=== PATIENT | male | born 1980 | race Caucasian/White ===

== ENCOUNTER 2019-05-12 17:43 | Inpatient (IN) | payer MEDICAID ==
[~2019-05-12] VITALS: Ht 172.7 cm; Wt 110.0 kg
[~2019-05-12 17:43] MED LIST: DOCU-144 PO; HYDR-4011 PO
[2019-05-12 18:02] VITALS: Ht 172.7 cm; Wt 110.0 kg
[2019-05-12] MEDS ORDERED: LIDOCAINE/MYLANTA 40 ML BTL PO ONE (19:00)
[2019-05-12] MEDS ORDERED: RANITIDINE 150 MG TAB PO ONE (19:00)
[2019-05-12] MEDS ORDERED: LACTATED RINGER'S 1,000 ML IV ONE (20:30)
[2019-05-12] MEDS ORDERED: PIPER-TAZO 3.375 GM IV (PMX) 100 ML IVPB ONE (20:30)
[2019-05-12] MEDS ORDERED: BISACODYL (EC) 5 MG TAB PO PRN (21:30)
[2019-05-12] MEDS ORDERED: ACETAMINOPHEN 325 MG TAB PO PRN (21:30)
[2019-05-12] MEDS ORDERED: NACL 0.9% 3 ML SYG IV SCH (21:30)
[2019-05-12] MEDS ORDERED: DOCUSATE SODIUM 100 MG CAP PO PRN (21:30)
[2019-05-12] MEDS ORDERED: ONDANSETRON 4 MG INJ IV PRN (21:30)
[2019-05-13] VITALS (14 sets, daily range): BP systolic 99–129; BP diastolic 55–89; PULSE 62–77; RESP 12–20
[2019-05-13] MEDS: PIPER-TAZO 3.375 GM IV (PMX) 100 ML IVPB SCH ×4 (00:15→18:00)
[2019-05-13] MEDS: SOD CHLORIDE 0.9% 1,000 ML IV SCH ×3 (00:15→22:42)
[2019-05-13] MEDS ORDERED: CEFAZOLIN 1 GM INJ ONE (14:31)
[2019-05-13] MEDS ORDERED: MIDAZOLAM 1 MG/ML 2 ML INJ ONE (14:31)
[2019-05-13] MEDS ORDERED: PROPOFOL 20 ML ONE (14:31)
[2019-05-13] MEDS ORDERED: ROCURONIUM 50 MG INJ ONE ×3 (14:31→19:08)
[2019-05-13] MEDS ORDERED: FENTAnyl 50 MCG/ML VIAL ONE ×2 (14:31→18:18)
[2019-05-13] MEDS ORDERED: ROPIVACAINE 0.5 % 30 ML VIAL ONE (14:31)
[2019-05-13] MEDS ORDERED: BUPIVACAINE 0.25%/EPI (SDV) 10 ML INJ ONE (15:04)
[2019-05-13] MEDS ORDERED: KETOROLAC 30 MG INJ ONE (17:34)
[2019-05-13] MEDS ORDERED: METOCLOPRAMIDE 10 MG INJ ONE (17:34)
[2019-05-13] MEDS ORDERED: DEXAMETHASONE 4 MG/ML 5 ML INJ ONE (17:34)
[2019-05-13] MEDS ORDERED: ONDANSETRON 4 MG INJ ONE (17:34)
[2019-05-13] MEDS ORDERED: SUGAMMADEX SODIUM 200 MG/2 ML VIAL IV ONE (19:08)
[2019-05-13] MEDS ORDERED: HYDROmorphONE 1 MG/5 ML IV SYRINGE IV PRN ×3 (19:30)
[2019-05-13] MEDS ORDERED: ONDANSETRON 4 MG INJ IV PRN (19:30)
[2019-05-13] MEDS ORDERED: MEPERIDINE 25 MG INJ IV PRN (19:30)
[2019-05-14] MEDS: PIPER-TAZO 3.375 GM IV (PMX) 100 ML IVPB SCH ×5 (00:16→23:59)
[2019-05-14] MEDS: morphine 2 MG INJ IV PRN ×4 (02:00→19:47)
[2019-05-14 02:29] VITALS: BP 124/71; PULSE 70; RESP 16
[2019-05-14 08:19] VITALS: BP 130/78; PULSE 67; RESP 18
[2019-05-14 14:40] VITALS: BP 135/86; PULSE 63; RESP 19
[2019-05-14] MEDS: SOD CHLORIDE 0.9% 1,000 ML IV SCH ×2 (15:32→23:22)
[2019-05-14 20:30] VITALS: BP 131/83; PULSE 67; RESP 20
[2019-05-15] MEDS: morphine 2 MG INJ IV PRN ×4 (00:08→21:47)
[2019-05-15 02:10] VITALS: BP 131/85; PULSE 63; RESP 18
[2019-05-15] MEDS: PIPER-TAZO 3.375 GM IV (PMX) 100 ML IVPB SCH ×4 (05:30→23:56)
[2019-05-15] MEDS: SOD CHLORIDE 0.9% 1,000 ML IV SCH ×2 (05:32→11:39)
[2019-05-15 08:00] VITALS: BP 129/85; PULSE 66; RESP 19
[2019-05-15 14:00] VITALS: BP 128/80; PULSE 60; RESP 18
[2019-05-15 20:00] VITALS: BP 130/84; PULSE 64; RESP 18
[2019-05-16 02:00] VITALS: BP 126/85; PULSE 76; RESP 17
[2019-05-16] MEDS: morphine 2 MG INJ IV PRN (04:22)
[2019-05-16] MEDS: PIPER-TAZO 3.375 GM IV (PMX) 100 ML IVPB SCH ×2 (05:58→12:28)
[2019-05-16 08:10] VITALS: BP 119/84; PULSE 63; RESP 18
[2019-05-16 14:46] VITALS: BP 118/76; PULSE 62; RESP 18
== END 2019-05-16 16:43 | disposition home or self-care (01) | DRG 343 ==
LOC: FTE 17:43 → PP2 21:14
PROVIDERS: ADMIT Family Medicine; ATTEND Family Medicine
PROC: 0DTJ4ZZ Resection of Appendix, Percutaneous Endoscopic Approach (ICD-10-PCS; principal; 2019-05-13 15:30)
DX: K35.80 Unspecified acute appendicitis (principal); E66.01 Morbid (severe) obesity due to excess calories; Z68.36 Body mass index [BMI] 36.0-36.9, adult; F17.200 Nicotine dependence, unspecified, uncomplicated
CPT/HCPCS: 71045; 74176; 80048; 80053; 80061; 81003; 83036; 83690; 83735; 84100; 84443; 85025; 85610; 85730; 88304; J0690; J1100; J1885; J2250; J2270; J2405; J2543; J2765; J2795; J3010; J7030; J7120